=== PATIENT | male | born 1960 | race Caucasian/White ===

== ENCOUNTER 2018-09-11 10:09 | Emergency (ER) | payer BC ==
[2018-09-11 10:27] VITALS: TEMP 98.3; BMI 29.4
[2018-09-11] MEDS ORDERED: SODIUM CHLORIDE FOR INHALATION 3 ML VIAL.NEB IH ONE (11:33)
[2018-09-11 12:07] LABS: BASO % 0.9 % (0-2.0); EOS % 3.4 % (0-4.5); HEMATOCRIT 48.9 % (35.4-49); HEMOGLOBIN 16.8 GM/dL (11.7-16.9); LYMPH % 14.6 % (8-40); MCH 31.3 pg (25.7-33.7); MCHC 34.4 g/dl (32.0-35.9); MEAN CELL VOLUME 90.9 fl (80-96); MEAN PLT VOLUME 9.1 fl (7.5-11.1); MONO % 13.5 % (3.8-10.2); NEUT % 67.6 % (42.8-82.8); PLATELET COUNT 256 K/MM3 (134-434); RBC 5.38 M/mm3 (4.00-5.60); RDW 13.3 % (11.9-15.9); WHITE BLOOD COUNT 8.4 K/mm3 (4.0-10.0)
[2018-09-11 12:35] LABS: ALBUMIN 4.5 g/dl (3.4-5.0); ALK PHOS 126 U/L (45-117); ANION GAP 7 MMOL/L (8-16); BILIRUBIN,TOTAL 0.6 mg/dL (0.2-1); BLOOD UREA NITROGEN 14 mg/dL (7-18); CALCIUM 9.2 mg/dL (8.5-10.1); CHLORIDE 105 mmol/L (98-107); CO2 25 mmol/L (21-32); GLUCOSE,RANDOM 98 mg/dL (74-106); N-TERMINAL BNP 14.1 pg/ml (5-125); SGOT/AST 38 U/L (15-37); SGPT/ALT 92 U/L (13-61); SODIUM 137 mmol/L (136-145); TOT PROT 8.4 g/dl (6.4-8.2)
--- NOTE | 2018-09-11 12:42 | PDOC ---
History of Present Illness - General Chief Complaint: Shortness of Breath Stated Complaint: COUGH,SOB Time Seen by Provider: 09/11/18 10:58 - History of Present Illness Initial Comments: 09/11/18 12:33 The patient is a 57 year old male, employee of this hospital, with a significant past medical history of psoriasis on Humira, hyperlipidemia, hypertension, pneumonia x5 (requiring hospital stays at times) and a partial resection secondary to recurrent diverticulitis who presents to the emergency department with 1.5 weeks of cold symptoms. Pt reports frequent dry cough preceded by tickle in the throat. Pt reports when cough is particularly bad, he begins to feel shortness of breath. The patient states he had a sore throat and sinus congestion last week for which he was taking multivitamins. He states his throat is less sore today and reports improvement of his sinus congestion, however, states the cough has persisted. He reports taking a deep breath exacerbates his cough. Denies SOB at rest or with exertion. REports this feels like the previous times he has had bronchitis and he is going on vacation next week and does not want it to progress to PNA which prompted this ED visit. The patient denies chest pain, headache, LE edema and dizziness. The patient denies fever, chills, nausea, vomit, diarrhea and constipation. The patient denies dysuria, frequency, urgency and hematuria. Allergies: NKDA Past surgical history: cholecystectomy, right shoulder, bowel resection Past History - Past Medical History Allergies/Adverse Reactions: Allergies Allergy/AdvReac Type Severity Reaction Status Date / Time No Known Drug Allergies Allergy Verified 09/11/18 10:24 Home Medications: Ambulatory Orders Adalimumab [Humira] 80 mg PO DAILY 07/07/13 Amlodipine Besylate [Norvasc -] 5 mg PO DAILY 12/12/13 Omeprazole [Prilosec] 40 mg PO DAILY 10/22/14 Albuterol Sulfate Inhaler - [Ventolin HFA Inhaler -] 1 - 2 inh PO QID PRN #1 inhaler 04/07/16 Guaifenesin AC [Robitussin AC -] 10 ml PO Q8H PRN #1 bottle MDD 30mL 04/07/16 Lactobacillus Acidophilus [Acidophilus Lactobacillus] 1 each PO DAILY #10 capsule 04/07/16 Levofloxacin [Levaquin] 500 mg PO DAILY #2 tablet 04/07/16 predniSONE [Deltasone -] 5 mg PO ASDIR #78 tab 04/07/16 Azithromycin 250 mg PO DAILY #4 tablet 09/11/18 COPD: No GI Disorders: Yes (DIVERTICULITIS, GERD) HTN: Yes Hypercholesterolemia: Yes Other medical history: psoriasis - Surgical History Abdominal Surgery: Yes (SIGMOID COLON REMOVED) Cholecystectomy: Yes - Family Disease History Family Disease History: Heart Disease: Father - Immunization History Immunization Up to Date: Yes - Suicide/Smoking/Psychosocial Hx Smoking Status: No Smoking History: Never smoked Have you smoked in the past 12 months: No Number of Cigarettes Smoked Daily: 0 Information on smoking cessation initiated: No Hx Alcohol Use: No Drug/Substance Use Hx: No Substance Use Type: None Hx Substance Use Treatment: No Review of Systems - Review of Systems Comments:: 09/11/18 12:42 GENERAL/CONSTITUTIONAL: No fever or chills. No weakness. HEAD, EYES, EARS, NOSE AND THROAT: (+) sore throat. No change in vision. No ear pain or discharge. GASTROINTESTINAL: No nausea, vomiting, diarrhea or constipation. GENITOURINARY: No dysuria, frequency, or change in urination. CARDIOVASCULAR:(+) shortness of breath, chest soreness. RESPIRATORY: (+)cough, SOB/ No wheezing, or hemoptysis. MUSCULOSKELETAL: No joint or muscle swelling or pain. No neck or back pain. SKIN: No rash NEUROLOGIC: No vertigo, headache, loss of consciousness, or change in strength/ sensation. ENDOCRINE: No increased thirst. No abnormal weight change. HEMATOLOGIC/LYMPHATIC: No anemia, easy bleeding, or history of blood clots. ALLERGIC/IMMUNOLOGIC: No hives or skin allergy." *Physical Exam - Vital Signs Last Vital Signs Temp Pulse Resp BP Pulse Ox 98.3 F 89 20 158/97 96 09/11/18 10:25 09/11/18 10:25 09/11/18 10:25 09/11/18 10:25 09/11/18 10:25 - Physical Exam Comments: 09/11/18 12:43 GENERAL: Awake, alert, and fully oriented, in no acute distress. Non toxic. EYES: PERRLA, EOMI, sclera anicteric, conjunctiva clear ENT: Auricles normal inspection, hearing grossly normal, nares patent, oropharynx clear without exudates. Moist mucosa NECK: Normal ROM, supple, no lymphadenopathy, JVD, or masses LUNGS: Breath sounds equal, clear to auscultation bilaterally. No wheezes, and no crackles. No WOB. HEART: Regular rate and rhythm, normal S1 and S2, no murmurs, rubs or gallops ABDOMEN: Soft, nontender, normoactive bowel sounds. No guarding, no rebound. No masses EXTREMITIES: Normal range of motion, no edema. No cords, erythema, or tenderness BACK: No midline spinal tenderness in cervical/thoracic/lumbar region NEUROLOGICAL: Normal speech, cranial nerves intact, equal strength and sensation b/l SKIN: Warm, Dry, normal turgor, no rashes or lesions noted." Heart Score/ECG Review #1 09/11/18 12:44 Twelve-lead EKG was performed and reviewed by me. Normal sinus rhythm, rate 92. Normal axis and intervals. No ST elevations or T-wave inversions. ED Treatment Course - LABORATORY CBC & Chemistry Diagram: 09/11/18 12:00 09/11/18 11:57 - ADDITIONAL ORDERS Additional order review: 09/11/18 12:00 RBC 5.38 MCV 90.9 MCHC 34.4 RDW 13.3 MPV 9.1 Neutrophils % 67.6 D Lymphocytes % 14.6 D Monocytes % 13.5 H D Eosinophils % 3.4 D Basophils % 0.9 D - RADIOLOGY Radiology Studies Ordered: Category Date Time Status CHEST PA & LAT [RAD] Stat Radiology 09/11/18 11:33 Taken - Medications Given in the ED: ED Medications Discontinued Medications Generic Name Dose Route Start Last Admin Trade Name Freq PRN Reason Stop Dose Admin Sodium Chloride 3 ml 09/11/18 11:33 09/11/18 11:56 Normal Saline For Inhalation - IH 09/11/18 11:34 3 ml ONCE ONE Administration Medical Decision Making - Medical Decision Making 09/11/18 12:45 57yo M hx psoriasis on humira, HTN, HL, PNA presents to the ED with 1.5 weeks of dry cough a/w SOB. Vitals unremarkable. Exam with clear lungs, no wheezing. Likely bronchitis but will obtain CXR to r/o PNA as pt is immune compromised. With regards to SOB, pt reports occurs only when bad coughing fit but in light of HTN/HL, will check labs including trop/bnp. EKG not ischemic. 09/11/18 13:39 Labs with mild LFT bump, but pt has no abd pain or ttp Trop/bnp neg CXR clear Feels better with saline neb Likely bronchitis In light of hx of hx of recurrent PNA and humira, will prescribe z-pack Pt to f/u with PMD in 2-3 days I discussed the physical exam findings, ancillary test results and final diagnoses with the patient. I answered all of the patient's questions. The patient was satisfied with the care received and felt comfortable with the discharge plan and treatment plan. The patient will call their primary care physician within 24 hours to arrange follow-up and will return to the Emergency Department with any new, persistent or worsening symptoms. *DC/Admit/Observation/Transfer Diagnosis at time of Disposition: Bronchitis, Cough, Sore throat and laryngitis - Discharge Dispostion Disposition: HOME Condition at time of disposition: Improved Decision to Admit order: No - Prescriptions Prescriptions: Azithromycin 250 mg PO DAILY #4 tablet - Referrals Referrals: Chin Kelly MD [Primary Care Provider] - - Patient Instructions Printed Discharge Instructions: DI for Cough -- Adult, DI for Acute Bronchitis Additional Instructions: Follow up with your primary doctor within 1-2 days Your liver function tests were slightly elevated, have your primary doctor repeats them to make sure they improve and are not getting worse Use the saline nebulizer as advised Take the azithromycin as prescribed Return to the emergency department if you have any new, worsening, or concerning symptoms - Post Discharge Activity - Attestations Physician Attestion: 09/11/18 13:44 I, Dr. Glenny Clemons MD, attest that this document has been prepared under my direction and personally reviewed by me in its entirety. I further attest, that it accurately reflects all work, treatment, procedures and medical decision -making performed by me.
[2018-09-11 13:42] VITALS: BP 146/91; PULSE 91
[2018-09-11] MEDS ORDERED: AZITHROMYCIN 250 MG TABLET PO ONE (13:44)
[2018-09-11] MEDS ORDERED: AZITHROMYCIN 250 MG TABLET ONE (14:01)
--- NOTE | 2018-09-12 11:49 | EKG ---
Test Reason : Blood Pressure : / mmHG Vent. Rate : 092 BPM Atrial Rate : 092 BPM P-R Int : 190 ms QRS Dur : 094 ms QT Int : 352 ms P-R-T Axes : 044 067 046 degrees QTc Int : 435 ms NORMAL SINUS RHYTHM POSSIBLE LEFT ATRIAL ENLARGEMENT BORDERLINE ECG WHEN COMPARED WITH ECG OF 04-APR-2016 14:14, NO SIGNIFICANT CHANGE WAS FOUND Confirmed by MOLLY LAWRENCE MD ([id number]) on 09/12/2018 11:49:20 AM Referred By: Confirmed By:MOLLY LAWRENCE MD
== END 2018-09-11 14:22 | disposition home or self-care (01) ==
LOC: JER 10:09
PROC: 3E0337Z Introduction of Electrolytic and Water Balance Substance into Peripheral Vein, Percutaneous Approach (ICD-10-PCS; principal; 2018-09-11)
DX: J40 Bronchitis, not specified as acute or chronic (principal); R05 Cough; J02.9 Acute pharyngitis, unspecified; J04.0 Acute laryngitis; I10 Essential (primary) hypertension; E78.5 Hyperlipidemia, unspecified; Z87.01 Personal history of pneumonia (recurrent); L40.9 Psoriasis, unspecified
CPT/HCPCS: 36415; 71046-TC-FY; 80053; 83880; 84484; 85025; 87804; 93005; 93010; 99282-25

== ENCOUNTER 2018-10-14 16:40 | Emergency (ER) | payer BC ==
[2018-10-14] MEDS ORDERED: ALBUTEROL SO4 2.5/IPRATROPIUM 0.5 INH SOL 3 ML VIAL.NEB. NEB ONE ×2 (16:49→17:10)
[2018-10-14 17:08] VITALS: BP 149/97; TEMP 98.5; BMI 29.4
--- NOTE | 2018-10-14 17:09 | PDOC ---
History of Present Illness - General Chief Complaint: Respiratory Stated Complaint: COUGH Time Seen by Provider: 10/14/18 16:48 History Source: Patient Exam Limitations: No Limitations - History of Present Illness Initial Comments: 10/14/18 17:03 58 year old male with past medical history of hypertension, acid reflux, psoriasis on Humira presents with 2 months of coughing and difficulty breathing. Approximately 2 months ago, the patient was initiated on antibiotic for chest congestion. The symptoms did not improve and the patient returned to his primary care physician with prescribe a dose of Medrol pack. Patient noted no improvement and was subsequently put on high-dose steroids which had improved the symptoms. The patient had chest x-ray approximate 1 month ago which was reportedly unremarkable. However, last few days, the patient noted some increasing chest congestion, difficulty breathing. There is no fevers or chills. Patient was working at [email or web address] but noted the worsening breathing so came to the ER. Past History - Past Medical History Allergies/Adverse Reactions: Allergies Allergy/AdvReac Type Severity Reaction Status Date / Time No Known Drug Allergies Allergy Verified 09/11/18 10:24 Home Medications: Ambulatory Orders Adalimumab [Humira] 80 mg PO DAILY 07/07/13 Amlodipine Besylate [Norvasc -] 5 mg PO DAILY 12/12/13 Omeprazole [Prilosec] 40 mg PO DAILY 10/22/14 Albuterol Sulfate Inhaler - [Ventolin HFA Inhaler -] 1 - 2 inh PO QID PRN #1 inhaler 04/07/16 Guaifenesin AC [Robitussin AC -] 10 ml PO Q8H PRN #1 bottle MDD 30mL 04/07/16 Lactobacillus Acidophilus [Acidophilus Lactobacillus] 1 each PO DAILY #10 capsule 04/07/16 Levofloxacin [Levaquin] 500 mg PO DAILY #2 tablet 04/07/16 predniSONE [Deltasone -] 5 mg PO ASDIR #78 tab 04/07/16 Azithromycin 250 mg PO DAILY #4 tablet 09/11/18 Albuterol 0.083% Nebulizer Loren [Ventolin 0.083% Nebulizer Soln -] 1 neb NEB Q4H PRN #20 vial 10/14/18 Albuterol 0.083% Nebulizer Loren [Ventolin 0.083% Nebulizer Soln -] 1 neb NEB Q4H PRN #20 vial 10/14/18 Prednisone [Deltasone] 40 mg PO DAILY #8 tablet 10/14/18 Prednisone [Deltasone] 40 mg PO DAILY #8 tablet 10/14/18 COPD: No GI Disorders: Yes (DIVERTICULITIS, GERD) HTN: Yes Hypercholesterolemia: Yes - Surgical History Abdominal Surgery: Yes (SIGMOID COLON REMOVED) Cholecystectomy: Yes - Family Disease History Family Disease History: Heart Disease: Father - Immunization History Immunization Up to Date: Yes - Suicide/Smoking/Psychosocial Hx Smoking Status: No Smoking History: Never smoked Have you smoked in the past 12 months: No Number of Cigarettes Smoked Daily: 0 Hx Alcohol Use: No Drug/Substance Use Hx: No Substance Use Type: None Hx Substance Use Treatment: No Review of Systems - Review of Systems Able to Perform ROS?: Yes Comments:: 10/14/18 17:05 GENERAL/CONSTITUTIONAL: [No fever or chills. No weakness. No weight change.] HEAD, EYES, EARS, NOSE AND THROAT: [No change in vision. No ear pain or discharge. No sore throat.] CARDIOVASCULAR: [No chest pain ] RESPIRATORY: +cough and difficulty breathing GASTROINTESTINAL: [No nausea, vomiting, diarrhea or constipation. No rectal bleeding.] GENITOURINARY: [No dysuria, frequency, or change in urination.] MUSCULOSKELETAL: [No joint or muscle swelling or pain. No neck or back pain.] SKIN AND BREASTS: [No rash or easy bruising.] NEUROLOGIC: [No headache, vertigo, loss of consciousness, or loss of sensation.] PSYCHIATRIC: [No depression or anxiety.] ENDOCRINE: [No increased thirst. No abnormal weight change.] HEMATOLOGIC/LYMPHATIC: [No anemia, easy bleeding, or history of blood clots.] ALLERGIC/IMMUNOLOGIC: [No hives or skin allergy. No latex allergy.] *Physical Exam - Physical Exam Comments: 10/14/18 17:06 GENERAL: Awake, alert, and fully oriented, in no acute distress HEAD: No signs of trauma EYES: EOMI, sclera anicteric, conjunctiva clear ENT: Auricles normal inspection, hearing grossly normal, nares patent, Moist mucosa NECK: Normal ROM, supple, LUNGS: Diffuse expiratory wheezing, persistent coughing throughout exam. HEART: Regular rate and rhythm, normal S1 and S2, no murmurs, rubs or gallops EXTREMITIES: Normal range of motion NEUROLOGICAL: Cranial nerves II through XII grossly intact. Normal speech, normal gait SKIN: Warm, Dry, normal turgor, no rashes or lesions noted. Heart Score/ECG Review #1 ECG reviewed & interpreted by me at: 17:50 10/14/18 17:54 NSR 88, no std/albin, normal axis, normal intervals, QTC 450 msec ED Treatment Course - LABORATORY CBC & Chemistry Diagram: 10/14/18 17:09 10/14/18 17:09 - RADIOLOGY Radiology Studies Ordered: Category Date Time Status CHEST PA & LAT [RAD] Stat Radiology 10/14/18 16:49 Ordered Medical Decision Making - Medical Decision Making 10/14/18 17:08 58-year-old male presents with persistent coughing. Patient may potentially underlying pneumonia. We'll need a chest x-ray and blood cultures. However, with dry cough, differential some includes cardiac. Could this be just heart failure? Or other cardiac etiology? Could this also be interstitial lung disease or other underlying pulmonary disease? We'll obtain a BNP and labs. We' ll initiate patient on duonabs. Will likely need to initiate steroids despite that the patient was recently off steroids. Consider admission to the hospital. 10/14/18 18:57 CBC, BMP 10/14/18 17:09 10/14/18 17:09 CMP Sodium 137 mmol/L (136-145) 10/14/18 17:09 Potassium 3.5 mmol/L (3.5-5.1) 10/14/18 17:09 Chloride 99 mmol/L (98-107) 10/14/18 17:09 Carbon Dioxide 21 mmol/L (21-32) 10/14/18 17:09 Anion Gap 17 MMOL/L (8-16) H 10/14/18 17:09 BUN 16 mg/dl (7-18) 10/14/18 17:09 Creatinine 1.1 mg/dl (0.55-1.3) 10/14/18 17:09 Creat Clearance w eGFR 68.52 (>60) 10/14/18 17:09 Random Glucose 93 mg/dl (74-106) 10/14/18 17:09 Calcium 9.0 mg/dl (8.5-10) 10/14/18 17:09 Magnesium 1.9 mg/dL (1.8-2.4) 10/14/18 17:09 Total Bilirubin 1.1 mg/dl (0.2-1) H 10/14/18 17:09 AST 61 U/L (15-37) H 10/14/18 17:09 ALT 105 U/L (13-61) H 10/14/18 17:09 Alkaline Phosphatase 105 U/L (45-117) 10/14/18 17:09 Troponin I < 0.03 ng/ml (0.00-0.05) 10/14/18 17:09 Total Protein 8.0 g/dl (6.4-8.2) 10/14/18 17:09 Albumin 4.7 g/dl (3.4-5.0) 10/14/18 17:09 Chest xray reviewed by me, pending official radiology read. No infiltrates. Pt has improved drastically with duonebs and 40 mg prednisone. At this time, after discussing with the patient, the patient feels comfortable going home. I advised the patient that once he completes his prednisone that his symptoms may return. I advised that he keep a journal of what may be triggering his symptoms. Will d/c with duoneb and prednisone. *DC/Admit/Observation/Transfer Diagnosis at time of Disposition: Cough - Discharge Dispostion Disposition: HOME Condition at time of disposition: Improved Decision to Admit order: No - Prescriptions Prescriptions: Albuterol 0.083% Nebulizer Loren [Ventolin 0.083% Nebulizer Soln -] 1 neb NEB Q4H PRN #20 vial PRN Reason: Wheezing Albuterol 0.083% Nebulizer Loren [Ventolin 0.083% Nebulizer Soln -] 1 neb NEB Q4H PRN #20 vial PRN Reason: Wheezing Prednisone [Deltasone] 40 mg PO DAILY #8 tablet Prednisone [Deltasone] 40 mg PO DAILY #8 tablet - Referrals Referrals: Rome Trevizo MD [Staff Physician] - - Patient Instructions Printed Discharge Instructions: DI for Cough -- Adult Additional Instructions: Please take 40 mg prednisone daily for the next 4 days. Take 1 albuterol every 4 hours as needed for wheezing. Please follow up with your doctor. - Post Discharge Activity
[2018-10-14 17:32] LABS: NEUT % 47.4 % (42.8-82.8)
[2018-10-14 17:40] LABS: BASO % 0.5 % (0-2.0); EOS % 4.6 % (0-4.5); HEMATOCRIT 47.4 % (35.4-49); HEMOGLOBIN 16.3 GM/dl (11.7-16.9); LYMPH % 36.1 % (8-40); MCH 31.9 pg (25.7-33.7); MCHC 34.5 g/dl (32.0-35.9); MEAN CELL VOLUME 92.5 fl (80-96); MEAN PLT VOLUME 9.6 fl (7.5-11.1); MONO % 11.4 % (3.8-10.2); PLATELET COUNT 239 K/MM3 (134-434); RBC 5.12 M/mm3 (4.00-5.60); RDW 12.4 % (11.9-15.9); WHITE BLOOD COUNT 7.4 K/mm3 (4.0-10.8)
[2018-10-14] MEDS ORDERED: ALBUTEROL SO4 0.083% IH SOL 2.5 MG/3 ML VIAL.NEB. NEB ONE ×2 (17:56→18:00)
[2018-10-14] MEDS ORDERED: predniSONE 20 MG TABLET (UD) PO ONE (17:56)
[2018-10-14] MEDS ORDERED: predniSONE 20 MG TABLET (UD) ONE (18:00)
[2018-10-14 18:17] LABS: ALBUMIN 4.7 g/dl (3.4-5.0); ALK PHOS 105 U/L (45-117); ANION GAP 17 MMOL/L (8-16); BILIRUBIN,TOTAL 1.1 mg/dl (0.2-1); BLOOD UREA NITROGEN 16 mg/dl (7-18); CHLORIDE 99 mmol/L (98-107); CO2 21 mmol/L (21-32); CREATININE 1.1 mg/dl (0.55-1.3); GLUCOSE,RANDOM 93 mg/dl (74-106); MAGNESIUM 1.9 mg/dL (1.8-2.4); POTASSIUM 3.5 mmol/L (3.5-5.1); SGOT/AST 61 U/L (15-37); SGPT/ALT 105 U/L (13-61); SODIUM 137 mmol/L (136-145)
[2018-10-14 18:49] VITALS: PULSE 92
[2018-10-14 19:27] LABS: N-TERMINAL BNP 5.5 pg/ml (5-125)
--- NOTE | 2018-10-15 08:31 | EKG ---
Test Reason : Blood Pressure : / mmHG Vent. Rate : 088 BPM Atrial Rate : 088 BPM P-R Int : 186 ms QRS Dur : 090 ms QT Int : 372 ms P-R-T Axes : 054 063 039 degrees QTc Int : 450 ms NORMAL SINUS RHYTHM POSSIBLE LEFT ATRIAL ENLARGEMENT BORDERLINE ECG WHEN COMPARED WITH ECG OF 11-SEP-2018 11:28, NO SIGNIFICANT CHANGE WAS FOUND Confirmed by MD MARIAA, JOSE L ([id number]) on 10/15/2018 8:31:23 AM Referred By: DR ROMANO Confirmed By:JOSE L LEROY MD
== END 2018-10-14 19:05 | disposition home or self-care (01) ==
LOC: FER 16:40
PROC: 3E0F7GC Introduction of Other Therapeutic Substance into Respiratory Tract, Via Natural or Artificial Opening (ICD-10-PCS; principal; 2018-10-14)
DX: R05 Cough (principal); I10 Essential (primary) hypertension; K21.9 Gastro-esophageal reflux disease without esophagitis; E78.5 Hyperlipidemia, unspecified; L40.9 Psoriasis, unspecified
CPT/HCPCS: 36415; 71046-TC-FY; 80053; 83605; 83735; 83880; 84484; 85025; 87040; 93005; 99284-25